=== PATIENT | male | born 1940 | race Caucasian/White ===

== ENCOUNTER 2020-06-08 17:57 | Inpatient (IN) ==
[2020-06-08] MEDS ORDERED: Naloxone 0.4 MG/ML INJ IVP PRN (20:20)
[2020-06-08] MEDS ORDERED: Ondansetron 4 MG/2 ML VIAL IVP PRN (20:20)
[2020-06-08] MEDS ORDERED: 0.9 % Sodium Chloride 1,000 ML IVC SCH (20:30)
[2020-06-08] MEDS: Pantoprazole 40 MG VIAL IVP SCH (22:38)
[2020-06-09] MEDS: Ipratropium/Albuterol Neb 3 ML IH SCH ×7 (00:56→23:59)
[2020-06-09 07:36] LABS: Hematocrit 37.4 % (37.5-50.1); Hemoglobin 12.1 g/dL (12.9-16.9); Mean Corpuscular HGB Conc 32.4 g/dL (31.6-35.5); Mean Corpuscular Hemoglobin 30.5 pg (28.0-33.3); Mean Corpuscular Volume 94.2 fL (83.0-100.0); Mean Platelet Volume 9.7 fL (9.4-12.4); Platelet Count 132 K/mcL (140-400); Red Blood Count 3.97 M/mcL (4.19-5.50); Red Cell Distribution Width 12.6 % (11.5-14.5); White Blood Count 7.3 K/mcL (4.3-11.1)
[2020-06-09 07:44] LABS: INR 1.3; Prothrombin Time 14.8 Seconds (9.4-12.1)
[2020-06-09 07:53] LABS: BUN/Creatinine Ratio 22 (6-26); Blood Urea Nitrogen 14 mg/dL (8-23); Calcium 8.3 mg/dL (8.6-10.3); Carbon Dioxide 19 mEq/L (23-29); Chloride 100 mEq/L (98-107); Glucose 58 mg/dL (70-105); Magnesium 1.8 mg/dL (1.6-2.6); Osmolality,Calculated 272 (280-300); Sodium 132 mEq/L (136-145); eGFR For African Americans > 60 (> 60); eGFR For Non-African Americans > 60 (> 60)
[2020-06-09] MEDS: Pantoprazole 40 MG VIAL IVP SCH (09:11)
[2020-06-09] MEDS ORDERED: *HR* Heparin 5,000 UNIT/ML VIAL IVP ONE ×2 (11:36→11:44)
[2020-06-09] MEDS ORDERED: *HR* Heparin 5,000 UNIT/ML VIAL IVP PRN ×4 (11:36→11:44)
[2020-06-09] MEDS ORDERED: Heparin 25,000UNIT/250ML 1/2NS 25,000 UNIT/250 ML IV.SOLN IVC SCH (11:45)
[2020-06-09] MEDS: 0.9 % Sodium Chloride 1,000 ML IVC SCH (12:41)
[2020-06-09] MEDS: Heparin 25,000UNIT/250ML 1/2NS 25,000 UNIT/250 ML IV.SOLN IVC SCH (12:41)
[2020-06-09] MEDS ORDERED: ALPRAZolam 0.5 MG TABLET PO PRN (16:06)
[2020-06-09] MEDS ORDERED: NON-FORMULARY MEDICATION 1 EACH EACH (Ipratropium/Albuterol Sulfate 1 PUFF) IH PRN (16:06)
[2020-06-09] MEDS ORDERED: Aspirin Enteric Coated 81 MG Tablet PO SCH (16:15)
[2020-06-09] MEDS: Budesonide/Formoterol 160/4.5 1 PUFF INH IH SCH (20:39)
[2020-06-09] MEDS ORDERED: traZODone 50 MG TABLET PO SCH (21:00)
[2020-06-09] MEDS ORDERED: Ipratropium/Albuterol Neb 3 ML IH PRN (22:00)
[2020-06-10] MEDS: 0.9 % Sodium Chloride 1,000 ML IVC SCH ×3 (01:22→18:34)
[2020-06-10 03:13] LABS: Basophils % 0.4 %; Eosinophils # 0.1 K/mcL (0.0-0.6); Eosinophils % 2.5 %; Hematocrit 36.1 % (37.5-50.1); Hemoglobin 11.6 g/dL (12.9-16.9); Immature Granulocytes % 0.6 % (0-4); Lymphocytes # 1.2 K/mcL (0.6-4.6); Lymphocytes % 23.1 %; Mean Corpuscular HGB Conc 32.1 g/dL (31.6-35.5); Mean Corpuscular Hemoglobin 30.9 pg (28.0-33.3); Mean Corpuscular Volume 96.3 fL (83.0-100.0); Mean Platelet Volume 9.7 fL (9.4-12.4); Monocytes # 0.5 K/mcL (0.0-1.3); Monocytes % 9.8 %; Neutrophils # 3.3 K/mcL (1.6-8.9); Platelet Count 125 K/mcL (140-400); Red Blood Count 3.75 M/mcL (4.19-5.50); Red Cell Distribution Width 12.7 % (11.5-14.5); Segmented Neutrophils % 63.6 %; White Blood Count 5.1 K/mcL (4.3-11.1)
[2020-06-10 03:31] LABS: BUN/Creatinine Ratio 14 (6-26); Blood Urea Nitrogen 10 mg/dL (8-23); Calcium 7.9 mg/dL (8.6-10.3); Carbon Dioxide 22 mEq/L (23-29); Chloride 107 mEq/L (98-107); Glucose 68 mg/dL (70-105); Magnesium 1.7 mg/dL (1.6-2.6); Osmolality,Calculated 281 (280-300); Potassium 3.5 mEq/L (3.5-5.1); Sodium 137 mEq/L (136-145); eGFR For African Americans > 60 (> 60); eGFR For Non-African Americans > 60 (> 60)
[2020-06-10] MEDS: Ipratropium/Albuterol Neb 3 ML IH SCH ×6 (04:01→23:55)
[2020-06-10] MEDS ORDERED: Dextrose Gel 15 GM/37.5 ML TUBE PO PRN ×4 (08:14→12:52)
[2020-06-10] MEDS ORDERED: *HR* Dextrose 50 % in Water (Vial) 50 ML VIAL IVP PRN ×2 (08:14→12:52)
[2020-06-10] MEDS ORDERED: D5% in Water 1,000 ML IVC PRN ×2 (08:14→12:52)
[2020-06-10] MEDS: Budesonide/Formoterol 160/4.5 1 PUFF INH IH SCH ×2 (08:21→19:40)
[2020-06-10] MEDS: Pantoprazole 40 MG VIAL IVP SCH (09:19)
[2020-06-10] MEDS ORDERED: *HR* Labetalol 20 MG/4 ML SYRINGE IVP PRN (10:33)
[2020-06-10] MEDS ORDERED: *HR* OxyCODONE Immed Rel 5 MG TABLET PO PRN (10:33)
[2020-06-10] MEDS ORDERED: *HR* HYDROmorphone (PF) 1 MG/ML SYRINGE IVP PRN (10:33)
[2020-06-10] MEDS ORDERED: Ondansetron 4 MG/2 ML VIAL IVP PRN ×2 (10:33→12:52)
[2020-06-10] MEDS ORDERED: Ipratropium/Albuterol Neb 3 ML IH PRN ×2 (10:35→12:52)
[2020-06-10] MEDS ORDERED: *HR* Rocuronium Bromide 50 MG/5 ML VIAL ONE (10:50)
[2020-06-10] MEDS ORDERED: Ondansetron 4 MG/2 ML VIAL ONE (10:50)
[2020-06-10] MEDS ORDERED: Lidocaine -MPF 2% 2 ML VIAL ONE (10:50)
[2020-06-10] MEDS ORDERED: *HR* Succinylcholine 200 MG/10 ML VIAL IVP ONE (10:50)
[2020-06-10] MEDS ORDERED: Lidocaine HCL 4 ML Topical Solution (Laryng-O-Jet Kit Sterile Pak) TP ONE (10:50)
[2020-06-10] MEDS ORDERED: *HR* Propofol 200 MG/20 ML VIAL IVP ONE (10:51)
[2020-06-10] MEDS ORDERED: *HR* FentaNYL (PF) 100 MCG/2 ML VIAL ONE (10:51)
[2020-06-10] MEDS ORDERED: Albumin Human 5% 12.5 GM/250 ML IV.SOLN ONE (10:54)
[2020-06-10] MEDS ORDERED: Acetaminophen IV 1,000 MG/100 ML BAG IVPB ONE (10:55)
[2020-06-10] MEDS ORDERED: cefOXitin 2,000 MG in Water for inj. (sterile) 20 ML IVP ONE (11:07)
[2020-06-10] MEDS ORDERED: CefOXitin 2,000 MG VIAL ONE (11:29)
[2020-06-10] MEDS ORDERED: Sugammadex Sodium 200 MG/2 ML VIAL IV ONE (11:49)
[2020-06-10] MEDS ORDERED: Heparin 25,000UNIT/250ML 1/2NS 25,000 UNIT/250 ML IV.SOLN IVC SCH (12:52)
[2020-06-10] MEDS ORDERED: *HR* Heparin 5,000 UNIT/ML VIAL IVP PRN ×2 (12:52)
[2020-06-10] MEDS ORDERED: ALPRAZolam 0.5 MG TABLET PO PRN (12:52)
[2020-06-10] MEDS ORDERED: Naloxone 0.4 MG/ML INJ IVP PRN (12:52)
[2020-06-10] MEDS: Heparin 25,000UNIT/250ML 1/2NS 25,000 UNIT/250 ML IV.SOLN IVC SCH (12:59)
[2020-06-10] MEDS ORDERED: traZODone 50 MG TABLET PO SCH (21:00)
[2020-06-11 01:11] LABS: Basophils % 0.1 %; Hematocrit 35.7 % (37.5-50.1); Hemoglobin 11.7 g/dL (12.9-16.9); Immature Granulocytes % 0.9 % (0-4); Lymphocytes # 0.7 K/mcL (0.6-4.6); Lymphocytes % 9.8 %; Mean Corpuscular HGB Conc 32.8 g/dL (31.6-35.5); Mean Corpuscular Hemoglobin 30.6 pg (28.0-33.3); Mean Corpuscular Volume 93.5 fL (83.0-100.0); Mean Platelet Volume 9.8 fL (9.4-12.4); Monocytes # 0.4 K/mcL (0.0-1.3); Monocytes % 5.2 %; Neutrophils # 5.7 K/mcL (1.6-8.9); Platelet Count 108 K/mcL (140-400); Red Blood Count 3.82 M/mcL (4.19-5.50); Red Cell Distribution Width 12.9 % (11.5-14.5); White Blood Count 6.8 K/mcL (4.3-11.1)
[2020-06-11 01:31] LABS: BUN/Creatinine Ratio 8 (6-26); Blood Urea Nitrogen 5 mg/dL (8-23); Calcium 8.3 mg/dL (8.6-10.3); Carbon Dioxide 23 mEq/L (23-29); Chloride 104 mEq/L (98-107); Glucose 162 mg/dL (70-105); Osmolality,Calculated 281 (280-300); Potassium 3.8 mEq/L (3.5-5.1); Sodium 135 mEq/L (136-145); eGFR For African Americans > 60 (> 60); eGFR For Non-African Americans > 60 (> 60)
[2020-06-11] MEDS: Ipratropium/Albuterol Neb 3 ML IH SCH ×3 (03:30→11:24)
[2020-06-11] MEDS: 0.9 % Sodium Chloride 1,000 ML IVC SCH (06:33)
[2020-06-11] MEDS: Budesonide/Formoterol 160/4.5 1 PUFF INH IH SCH (07:30)
[2020-06-11 08:02] VITALS: BP 109/50
[2020-06-11] MEDS ORDERED: Apixaban 5 MG TABLET PO SCH (09:00)
[2020-06-11] MEDS ORDERED: Pantoprazole 40 MG VIAL IVP SCH (09:00)
[2020-06-12] MEDS ORDERED: Aspirin Enteric Coated 81 MG Tablet PO SCH (16:15)
== END 2020-06-11 13:00 | disposition home or self-care (01) ==
LOC: 3BNU 17:57 → EMEROOARM 17:57 → 3BNU 20:33
PROVIDERS: ADMIT Student in an Organized Health Care Education/Training Program; ATTEND Student in an Organized Health Care Education/Training Program